=== PATIENT | male | born 1945 | race Caucasian/White ===

== ENCOUNTER → 2018-08-18 | Outpatient (CLI) | payer MEDICARE ==
--- NOTE | 2018-08-18 11:29 | Diagnostic Imaging Report ---
PROCEDURE: CT lumbar spine without contrast. TECHNIQUE: Multiple contiguous axial images were obtained through the lumbar spine without the use of intravenous contrast. Sagittal and coronal reformations were then performed. Auto Exposure Controls were utilized during the CT exam to meet ALARA standards for radiation dose reduction. INDICATION: Low back pain. Previous lumbar surgery. Work related injury sustained in the . Experienced pain since that insult progressive in severity. COMPARISON: I have no previous for comparison. FINDINGS: There are postsurgical changes of posterior fusion with bi-pedicular screws and vertical rods at the L3 through L5 levels. No appreciable jerrell-screw lucencies were found. No evidence for osteolysis or findings to suggest screw loosening or migration. The vertebral statures are normal and the alignment is anatomic. There is incorporated posterolateral bone graft material at the operative levels. No bony destruction. No fluid collection. No acute appearing abnormality. There is decompressive laminectomies without a demonstrated fluid collection. L1-L2: There is very slight loss of disc stature without disc displacement. The canal, foramen and recesses appear patent. L2-L3: There is some thickening of the ligamentum flava and facet arthrosis with circumferential annular disc bulge and endplate osteophytes. The constellation of findings result in a severe degree of trefoil configured stenosis of the thecal sac with mild to moderate degrees of biforaminal narrowing. L3-L4: No substantial degree of canal stenosis postop. There is mild to moderate bony biforaminal stenosis. L4-L5: No significant canal stenosis. Canal decompressed by laminectomy. There is some chronic ossifications and calcifications at the posterior aspect of the thecal sac and dura. There is mild chondrocalcinosis of the bulging disc itself with moderate degrees of predominantly bony biforaminal stenosis. L5-S1: Endplate osteophytes and disc material moderately stenose the left and right neural foramen. The spinal canal is not significantly narrowed. IMPRESSION: 1. Intact postsurgical changes without listhesis or findings of failure. No substantial lumbar canal stenoses at the operative levels L3 through L5. 2. Severe stenosis of the canal at the L2-L3 level above the fusion appears multifactorial with ligamentous thickening, facet arthrosis, osteophytes and disc bulge. 3. Multilevel foraminal stenoses listed level by level above. Dictated by: Dictated on workstation # [id number]
== END ==
LOC: RAD FS 09:03
PROVIDERS: ATTEND Neurological Surgery
DX: M48.07 Spinal stenosis, lumbosacral region (principal); M25.78 Osteophyte, vertebrae; M47.816 Spondylosis without myelopathy or radiculopathy, lumbar region; M51.26 Other intervertebral disc displacement, lumbar region; M11.28 Other chondrocalcinosis, vertebrae; M51.86 Other intervertebral disc disorders, lumbar region; Z98.1 Arthrodesis status
CPT/HCPCS: 72131

== ENCOUNTER → 2020-12-01 | Outpatient (CLI) | payer MEDICARE ==
[~2020-12-01] MED LIST: ACETAMINOPHEN 325 MG TABLET ONE; ACETAMINOPHEN 325 MG TABLET PO ONE; NS IV 1000 ML 1,000 ML IV ONE; cefTRIAXone 1,000 MG/SWFI 10 ML IV PUSH IV ONE
[2020-12-01 13:12] VITALS: BP 115/60
[2020-12-01 13:41] LABS: BILIRUBIN,URINE NEGATIVE (NEGATIVE); CLARITY,URINE CLEAR; COLOR,URINE YELLOW; GLUCOSE, URINE (UA) NEGATIVE (NEGATIVE); KETONES,URINE NEGATIVE (NEGATIVE); LEUKOCYTE ESTERASE ,URINE NEGATIVE (NEGATIVE); NITRITE,URINE NEGATIVE (NEGATIVE); PH,URINE 5.5 (5-9); PROTEIN,URINE 1+ (NEGATIVE)
[2020-12-01 13:51] LABS: BACTERIA,URINE TRACE /HPF; RBC,URINE RARE /HPF; SQUAMOUS EPITHELIAL CELL,UR 0-2 /HPF; WBC,URINE RARE /HPF
[2020-12-01 13:55] LABS: BASOPHILS % (AUTO) 0 % (0-10); EOSINOPHILS % (AUTO) 0 % (0-10); HEMATOCRIT 29 % (40-54); HEMOGLOBIN 9.6 g/dL (13.3-17.7); LYMPHOCYTES % (AUTO) 5 % (12-44); MEAN CORPUSCULAR HEMOGLOBIN 31 pg (25-34); MEAN CORPUSCULAR HGB CONC 34 g/dL (32-36); MEAN CORPUSCULAR VOLUME 93 fL (80-99); MEAN PLATELET VOLUME 10.3 fL (9.0-12.2); MONOCYTES # (AUTO) 1.7 10^3/uL (0.0-1.0); MONOCYTES % (AUTO) 9 % (0-12); NEUTROPHILS # (AUTO) 15.8 10^3/uL (1.8-7.8); NEUTROPHILS % (AUTO) 85 % (42-75); PLATELET COUNT 316 10^3/uL (130-400); WHITE BLOOD COUNT 18.7 10^3/uL (4.3-11.0)
[2020-12-01 14:25] LABS: ALBUMIN 3.1 GM/DL (3.2-4.5); BILIRUBIN,TOTAL 0.8 MG/DL (0.1-1.0); CALCIUM 8.9 MG/DL (8.5-10.1); CREATININE SERUM 2.28 MG/DL (0.60-1.30); ERYTHROCYTE SEDIMENTATION RATE 64 MM/HR (0-30); POTASSIUM 4.9 MMOL/L (3.6-5.0); TOTAL PROTEIN 5.9 GM/DL (6.4-8.2)
[2020-12-01 14:57] LABS: BAND NEUTROPHILS 5 %; BASOPHILS % (MANUAL) 0 %; EOSINOPHILS % (MANUAL) 0 %; LYMPHOCYTES % (MANUAL) 3 %; MONOCYTES % (MANUAL) 6 %; NEUTROPHILS % (MANUAL) 86 %; RBC MORPH NORMAL
== END ==
LOC: SDC 12:48
PROVIDERS: ATTEND Nurse Practitioner Family
DX: N39.0 Urinary tract infection, site not specified (principal); E86.0 Dehydration
CPT/HCPCS: 36415; 80053; 81000; 85007; 85027; 85652; 86038; 86141; 86431; 96360

== ENCOUNTER → 2021-04-30 | Outpatient (CLI) | payer MEDICARE ==
--- NOTE | 2021-04-30 13:27 | Diagnostic Imaging Report ---
PROCEDURE: US carotid duplex, bilateral. TECHNIQUE: Multiple real-time grayscale images were obtained over the carotid arteries in various projections, bilaterally. Additional spectral analysis and color Doppler duplex images were also obtained. INDICATION: Carotid bruit. FINDINGS: There is [id number] plaquing identified in both common carotid arteries and carotid bulbs extending into the proximal internal carotid arteries bilaterally. Velocities however are normal bilaterally. No velocity elevation or stenosis is identified. Both vertebral arteries show antegrade flow. There appears to be a nodule in the left thyroid lobe. This was incompletely evaluated. IMPRESSION: 1. Bilateral carotid plaques. There is no evidence of a hemodynamically significant stenosis. 2. Left thyroid nodule. Dedicated thyroid ultrasound could be performed for further evaluation. Parameters based on the consensus panel Lim-Scale and Doppler ultrasound criteria published March 2003, Radiology, Volume 229. DOPPLER (peak systolic velocity M/S Right Left CCA 1.04 .86 ICA Proximal .93 1.0 ICA Mid 1.15 1.02 ICA Distal .86 1.17 RATIO 1.11 1.36 ECA 1.37 3.40 VERT 1.06 .60 Dictated by: Dictated on workstation # [id number]
== END ==
LOC: RAD 12:30
PROVIDERS: ATTEND Family Medicine
DX: I65.23 Occlusion and stenosis of bilateral carotid arteries (principal); E04.1 Nontoxic single thyroid nodule
CPT/HCPCS: 93880

== ENCOUNTER 2022-04-06 16:22 | Emergency (ER) | payer MEDICARE ==
[~2022-04-06] VITALS: Ht 182 cm; Wt 81.0 kg
[2022-04-06] MEDS ORDERED: hydrALAZINE (APESOLINE) 20 MG/ML VIAL IV ONE (16:45)
[2022-04-06] MEDS ORDERED: ACETAMINOPHEN 325 MG TABLET PO ONE (16:45)
[2022-04-06 16:55] LABS: BASOPHILS % (AUTO) 0 % (0-10); EOSINOPHILS % (AUTO) 0 % (0-10); HEMATOCRIT 31 % (40-54); HEMOGLOBIN 10.1 g/dL (13.3-17.7); LYMPHOCYTES # (AUTO) 0.4 10^3/uL (1.0-4.0); LYMPHOCYTES % (AUTO) 6 % (12-44); MEAN CORPUSCULAR HEMOGLOBIN 31 pg (25-34); MEAN CORPUSCULAR HGB CONC 33 g/dL (32-36); MEAN CORPUSCULAR VOLUME 95 fL (80-99); MEAN PLATELET VOLUME 11.5 fL (9.0-12.2); MONOCYTES # (AUTO) 0.7 10^3/uL (0.0-1.0); MONOCYTES % (AUTO) 9 % (0-12); NEUTROPHILS # (AUTO) 6.2 10^3/uL (1.8-7.8); NEUTROPHILS % (AUTO) 84 % (42-75); PLATELET COUNT 184 10^3/uL (130-400); WHITE BLOOD COUNT 7.3 10^3/uL (4.3-11.0)
--- NOTE | 2022-04-06 16:59 | ED General ---
General Chief Complaint: Cardiac/General Problems Stated Complaint: HIGH BP,HEADACHE Nursing Triage Note: AMBULATED TO ROOM 07 WITH COMPLAINTS OF HEADACHE, HIGH BP, AND DIZZINESS STARTING YESTERDAY. Source of Information: Patient Exam Limitations: No Limitations History of Present Illness Date Seen by Provider: Apr 06, 2022 Time Seen by Provider: 16:55 Allergies and Home Medications Allergies Coded Allergies: morphine (Unverified Allergy, Unknown, 12/01/20) Patient Home Medication List Oseltamivir Phosphate (Tamiflu) 75 Mg Cap, 75 MG PO BID Prescribed by: Ravi Atwood on 04/06/22 1837 Past Gzfizrd-Glcrie-Ycwuca Hx Patient Social History Tobacco Use?: Yes Smoking Status: Former Smoker Substance use?: No Alcohol Use?: No Physical Exam Vital Signs Vital Signs - First Documented 04/06/22 16:25 Temp 38.4 Pulse 73 Resp 16 B/P (MAP) 204/91 (128) Pulse Ox 94 O2 Delivery Room Air Capillary Refill : Less Than 3 Seconds Height, Weight, BMI Height: '" Weight: lbs. oz. kg; 24.00 BMI Method: Progress/Results/Core Measures Suspected Sepsis SIRS Temperature: Pulse: 73 Respiratory Rate: 16 Laboratory Tests 04/06/22 16:40: White Blood Count 7.3 Blood Pressure 204 /91 Mean: 128 Laboratory Tests 04/06/22 16:40: Creatinine 2.20H, Platelet Count 184, Total Bilirubin 0.9 Results/Orders Lab Results Laboratory Tests Test 04/06/22 16:40 04/06/22 16:55 Range/Units White Blood Count 7.3 4.3-11.0 10^3/uL Red Blood Count 3.26 L 4.30-5.52 10^6/uL Hemoglobin 10.1 L 13.3-17.7 g/dL Hematocrit 31 L 40-54 % Mean Corpuscular Volume 95 80-99 fL Mean Corpuscular Hemoglobin 31 25-34 pg Mean Corpuscular Hemoglobin Concent 33 32-36 g/dL Red Cell Distribution Width 14.6 H 10.0-14.5 % Platelet Count 184 130-400 10^3/uL Mean Platelet Volume 11.5 9.0-12.2 fL Immature Granulocyte % (Auto) 1 % Neutrophils (%) (Auto) 84 H 42-75 % Lymphocytes (%) (Auto) 6 L 12-44 % Monocytes (%) (Auto) 9 0-12 % Eosinophils (%) (Auto) 0 0-10 % Basophils (%) (Auto) 0 0-10 % Neutrophils # (Auto) 6.2 1.8-7.8 10^3/uL Lymphocytes # (Auto) 0.4 L 1.0-4.0 10^3/uL Monocytes # (Auto) 0.7 0.0-1.0 10^3/uL Eosinophils # (Auto) 0.0 0.0-0.3 10^3/uL Basophils # (Auto) 0.0 0.0-0.1 10^3/uL Immature Granulocyte # (Auto) 0.0 0.0-0.1 10^3/uL Neutrophils % (Manual) 88 % Lymphocytes % (Manual) 4 % Monocytes % (Manual) 8 % Blood Morphology Comment NORMAL Sodium Level 138 135-145 MMOL/L Potassium Level 4.8 3.6-5.0 MMOL/L Chloride Level 104 98-107 MMOL/L Carbon Dioxide Level 24 21-32 MMOL/L Anion Gap 10 5-14 MMOL/L Blood Urea Nitrogen 35 H 7-18 MG/DL Creatinine 2.20 H 0.60-1.30 MG/DL Estimat Glomerular Filtration Rate 30 BUN/Creatinine Ratio 16 Glucose Level 215 H 70-105 MG/DL Calcium Level 9.7 8.5-10.1 MG/DL Corrected Calcium 10.0 8.5-10.1 MG/DL Total Bilirubin 0.9 0.1-1.0 MG/DL Aspartate Amino Transf (AST/SGOT) 23 5-34 U/L Alanine Aminotransferase (ALT/SGPT) 16 0-55 U/L Alkaline Phosphatase 91 40-136 U/L Total Protein 6.4 6.4-8.2 GM/DL Albumin 3.6 3.2-4.5 GM/DL Influenza Type A (RT-PCR) Detected H Not Detecte Influenza Type B (RT-PCR) Not Detected Not Detecte SARS-CoV-2 RNA (RT-PCR) Not Detected Not Detecte My Orders Orders - RAVI ATWOOD [employer] Cbc With Automated Diff (04/06/22 16:35) Comprehensive Metabolic Panel (04/06/22 16:35) Iv/Invasive Line Insertion .IV INSERT (04/06/22 16:35) Covid 19 Inhouse Test (04/06/22 16:35) Influenza A And B By Pcr (04/06/22 16:35) Isolation Central Supply Req (04/06/22 16:35) Acetaminophen Tablet/Caplet (Tylenol T (04/06/22 16:45) Ua Culture If Indicated (04/06/22 16:35) Hydralazine Injection (Apresoline Inject (04/06/22 16:45) Chest 1 View, Ap/Pa Only (04/06/22 16:44) Ekg Tracing (04/06/22 16:44) Manual Differential (04/06/22 16:40) Ns Iv 1000 Ml (Sodium Chloride 0.9%) (04/06/22 18:00) Medications Given in ED Current Medications Medications Dose Ordered Sig/Kathryn Route Start Time Stop Time Status Last Admin Dose Admin Acetaminophen 650 mg ONCE ONCE PO 04/06/22 16:45 04/06/22 16:46 DC 04/06/22 16:48 650 MG Hydralazine HCl 10 mg ONCE ONCE IV 04/06/22 16:45 04/06/22 16:46 DC 04/06/22 16:48 10 MG Vital Signs/I&O 04/06/22 04/06/22 04/06/22 16:25 16:48 18:06 Temp 38.4 38.4 37.4 Pulse 73 Resp 16 B/P (MAP) 204/91 (128) Pulse Ox 94 O2 Delivery Room Air Capillary Refill : Less Than 3 Seconds Blood Pressure Mean: 128 ECG EKG : EKG Time: 16:54 Rate: 69 Rhythm: Normal Sinus Intervals: Normal ECG Impression: Nonspecific Changes Departure Impression Primary Impression: Influenza A Disposition: 01 HOME, SELF-CARE Condition: Stable Departure-Patient Inst. Decision time for Depature: 18:55 Referrals: IVANA SORIANO MD (PCP/Family) Primary Care Physician Patient Instructions: Flu, Adult ED Scripts Oseltamivir Phosphate (Tamiflu) 75 Mg Cap 75 MG PO BID for 5 Days, #10 CAP 0 Refills Prov: RAVI ATWOOD APRN 04/06/22 RAVI ATWOOD APRN Apr 06, 2022 16:59
[2022-04-06 17:06] LABS: ALBUMIN 3.6 GM/DL (3.2-4.5)
[2022-04-06 17:07] LABS: POTASSIUM 4.8 MMOL/L (3.6-5.0)
--- NOTE | 2022-04-06 17:07 | Diagnostic Imaging Report ---
INDICATION: Headache and dizziness. TIME OF EXAM: 4:50 p.m. No prior studies are available for comparison. FINDINGS: Heart size is normal. Lungs are clear. No infiltrates are seen. There is no effusion or pneumothorax. Postop changes in the lower cervical spine are noted. IMPRESSION: No acute cardiopulmonary process is detected. Dictated by: Dictated on workstation # [id number]
[2022-04-06 17:08] LABS: CALCIUM 9.7 MG/DL (8.5-10.1)
[2022-04-06 17:09] LABS: TOTAL PROTEIN 6.4 GM/DL (6.4-8.2)
[2022-04-06 17:11] LABS: BILIRUBIN,TOTAL 0.9 MG/DL (0.1-1.0)
[2022-04-06 17:13] LABS: CREATININE SERUM 2.2 MG/DL (0.60-1.30)
[2022-04-06 17:15] LABS: LYMPHOCYTES % (MANUAL) 4 %; MONOCYTES % (MANUAL) 8 %; NEUTROPHILS % (MANUAL) 88 %; RBC MORPH NORMAL
[2022-04-06] MEDS ORDERED: NS IV 1000 ML 1,000 ML IV SCH (18:00)
[2022-04-06] MEDS ORDERED: OSLT75C PO (18:37)
[2022-04-06 19:27] VITALS: BP 195/70
== END 2022-04-06 19:30 | disposition home or self-care (01) ==
LOC: EDUNIT# 16:22 → ER 16:25
DX: J10.1 Influenza due to other identified influenza virus with other respiratory manifestations (principal); Z87.891 Personal history of nicotine dependence; Z20.822 Contact with and (suspected) exposure to COVID-19; Z28.310 Unvaccinated for COVID-19
CPT/HCPCS: 36415; 71045; 80053; 85007; 85027; 87636; 93005